=== PATIENT | female | born 1950 | race Caucasian/White ===

== ENCOUNTER 2018-01-12 07:37 | Emergency (ER) | payer MEDICARE, OTHER ==
[2018-01-12] MEDS: DEXTROSE 50% 50 ML DISP.SYRIN IVP PRN (07:45)
[2018-01-12] MEDS: DEXTROSE 5 % AND 0.9 % NACL 1,000 ML IV SCH ×2 (07:45→09:26)
[2018-01-12 08:12] LABS: BASOPHILS % 0.2 (0.0-1.5); EOSINOPHILS % 1.2 % (0.0-6.8); MEAN CORPUSCULAR HEMOGLOBIN 30.8 pg (28.0-34.0); MEAN CORPUSCULAR VOLUME 102.4 fl (80.0-100.0); MONOCYTES % 4.2 % (0.0-11.0); NEUTROPHILS # 8.5 # k/uL (1.4-7.7)
[2018-01-12] MEDS: FUROSEMIDE 20 MG/2 ML VIAL IVP ONE (08:25)
[2018-01-12 08:26] LABS: eGFR (African) > 60; eGFR (Non-African) > 60
--- NOTE | 2018-01-12 08:36 | ED Physician Documentation ---
General Adult - HISTORIAN Historian: patient, paramedics - HPI Chief Complaint: General Adult Further Comments: yes (Patient brought in via EMS from [facility] with blood sugar of 25. On arrival to ER, accu check was 29, amp of d50 given. Patient unresponsive to verbal or painful stimuli, diaphoretic, labored respirations with wet cough, RA sat 80%.) - ROS CONST: no problems (Patient unable to contribute to ROS on admission), recent illness (12/27 [facility] -L hip fracture, 12/31 to [facility] with cardiogenic shock) - PAST HX Past History: COPD Other History: diabetes Type 2, other Surgeries/Procedures: other (12/27 Left intertrochanteric femur fracture repair at [facility]) Allergies/Adverse Reactions: Allergies Allergy/AdvReac Type Severity Reaction Status Date / Time cephalexin monohydrate Allergy Unknown Verified 04/03/14 14:23 [From Keflex] rosuvastatin calcium Allergy Unknown Verified 04/03/14 14:23 [From Crestor] Home Medications: Ambulatory Orders Medication Instructions Recorded Aspirin [Marisa] 81 mg PO DAILY 04/03/14 Atorvastatin Calcium [Lipitor] 20 mg PO DAILY 04/03/14 Bupropion HCl [Bupropion HCl Sr] 150 mg PO DAILY 04/03/14 Gabapentin [Gabapentin] 100 mg PO DIRECTED 04/03/14 Insulin Detemir [Levemir Flexpen] 0 unit SQ DIRECTED 04/03/14 Insulin Lispro [Humalog] 0 unit SQ DIRECTED 04/03/14 Ipratropium/Albuterol Sulfate 3 ml NEB DIRECTED 04/03/14 [Duoneb] Levothyroxine Sodium [Synthroid] 75 mcg PO DAILY 04/03/14 Nitroglycerin 0.4 mg SL DIRECTED 04/03/14 [place]-3 Acid Ethyl Esters [Lovaza] 1 gm PO DIRECTED 04/03/14 Omeprazole 40 mg PO DAILY 04/03/14 Prasugrel HCl [Effient] 10 mg PO DAILY 04/03/14 Spironolactone 25 mg PO DIRECTED 04/03/14 Tiotropium [place] [Spiriva] 1 inh IH QD 04/03/14 Valsartan [Diovan] 40 mg PO DAILY 04/03/14 Venlafaxine HCl [Effexor] 25 mg PO DAILY 04/03/14 rOPINIRole HCL [Requip] 1 mg PO DAILY 04/03/14 Carvedilol [Coreg] 12.5 mg PO D #30 tablet 04/04/14 Furosemide 20 mg PO D #30 tablet 04/04/14 Insulin Detemir [Levemir Flextouch] 25 unit SQ HS #10 ml 04/04/14 Insulin Lispro [Humalog] 4 - 12 unit SQ QID #10 ml 04/04/14 - SOCIAL HX Smoking History: cigarettes - FAMILY HX Family History: No - VITAL SIGNS Vital Signs: Vital Signs Temp Pulse Resp BP Pulse Ox 161/81 04/04/14 10:06 - REVIEWED ASSESSMENTS Nursing Assessment Reviewed: Yes Vitals Reviewed: Yes Progress - Progress Progress: 1 amp D50 given on arrival - diaphoretic and obtunded. DNR noted. Blood sugar up to 174. Patient awake, re-oriented to place and time. Knows name. Reviewed medical records from [place] - 12/31/17 WBC 39.69, Trop .96, K 7.3, BNP 3680, ST 3389, ALT 1460 01/11/18 Lab - WBC 14.0, Na 132 0900 Patient lethargic - blood down to 74; 25mg of Dextrose give; D5NS increased to 150cc/hr; no D10 available at [facility]. 0915 Patient refusing to drink. Will need to transfer to higher level of care. No D10 or parental nutrition available. 0920 Spoke with ; updated on patient's condition, agrees with transfer. Call to [facility] - patient accepted by Dr Hampton. ED Results Lab/Radiology - Lab Results Lab Results: Lab Results 01/12/18 01/12/18 01/12/18 08:05 08:05 08:05 WBC 10.30 K/ul K/ul (4.00-12.00) RBC 4.03 M/ul M/ul (3.90-5.20) Hgb 12.4 g/dL g/dL (12.0-16.0) Hct 41.2 % % (34.5-46.5) MCV 102.4 fl H fl (80.0-100.0) MCH 30.8 pg pg (28.0-34.0) MCHC 30.1 g/dL g/dL (30.0-36.0) RDW 29.1 % H % (11.3-14.3) Plt Count 289 K/mm3 K/mm3 (130-400) Neut % (Auto) 82.2 % H % (39.0-79.0) Lymph % (Auto) 10.2 % L % (16.0-50.0) [place] % (Auto) 4.2 % % (0.0-11.0) Eos % (Auto) 1.2 % % (0.0-6.8) Baso % (Auto) 0.2 (0.0-1.5) Neut # (Auto) 8.5 # k/uL H # k/uL (1.4-7.7) Lymph # (Auto) 1.0 # k/uL # k/uL (0.6-4.0) [place] # (Auto) 0.4 # k/uL # k/uL (0.0-0.9) Eos # (Auto) 0.1 # k/uL # k/uL (0.0-0.6) Baso # (Auto) 0.0 # k/uL # k/uL (0.0-0.5) Reactive Lymphs % 2.1 % % (0.0-5.0) Reactive Lymphs # 0.2 # k/uL # k/uL (0.0-0.8) Sodium 131 mmol/L L mmol/L (136-145) Potassium 3.9 mmol/L mmol/L (3.5-5.1) Chloride 103 mmol/L mmol/L (98-107) Carbon Dioxide 23 mmol/L mmol/L (22-30) BUN 11 mg/dL mg/dL (7-17) Creatinine 0.50 mg/dL L mg/dL (0.52-1.04) Est GFR ( Amer) > 60 (60 - ) Est GFR (Non-Af Amer) > 60 (60 - ) Glucose 197 mg/dL H mg/dL (74-106) Lactate 1.5 U/L U/L (0.7-2.1) Calcium 8.2 mg/dL L mg/dL (8.4-10.2) Total Bilirubin 1.0 mg/dL mg/dL (0.2-1.3) AST 47 U/L H U/L (15-46) ALT 169 U/L H U/L (13-69) Alkaline Phosphatase 203 U/L H U/L (38-126) Creatine Kinase 155 U/L H U/L (30-135) CK-MB (CK-2) Pending Troponin I 0.20 ng/mL H ng/mL (0.03-0.06) NT-Pro-B Natriuret Pep Pending Total Protein 6.0 g/dL L g/dL (6.3-8.2) Albumin 2.8 g/dL L g/dL (3.5-5.0) - Radiology Radiology Impressions: Examination: Portable chest History: Evaluate lungs. COUGH, HYPOXIA (Hx) Comparison exam: None available. Findings: Single view of the chest demonstrates a normal cardiac and mediastinal silhouette. Vascular calcifications involving aortic arch. Lung sandoval without focal infiltrate. No blunting of the costophrenic margins. Right- sided franci cath. Osseous structures demonstrate osteopenia and articular degenerative. Right proximal humeral fixation hardware. Impression: No acute appearing pulmonary process. Electronically signed on Jan 12, 2018 8:56:46 AM CDT by: Saji Lr - Orders Orders: ED Orders Category Date Time Status Arterial Blood Gas 1T Care 01/12/18 07:49 Active Continuous EKG monitoring Q30M Care 01/12/18 07:46 Active Continuous Pulse Oximetry Q30M Care 01/12/18 07:46 Active [place] [Urinary catheterization] 1T Care 01/12/18 07:[address] IV Lock 1T Care 01/12/18 07:46 Active CHEST 1VIEW [RAD] Stat Exams 01/12/18 07:46 Ordered BLOOD CULTURE Stat Lab 01/12/18 08:05 Received BNP [NT-proBNP] Stat Lab 01/12/18 08:05 Results CBC/PLATELET/DIFF Stat Lab 01/12/18 08:05 Completed CKMB Stat Lab 01/12/18 08:05 Results CMP Stat Lab 01/12/18 08:05 Completed CREATINE KINASE Stat Lab 01/12/18 08:05 Completed LACTATE Stat Lab 01/12/18 08:05 Completed TROPONIN I (cTnI) Stat Lab 01/12/18 08:05 Results UA W/MICRO IF INDICATED Stat Lab 01/12/18 07:47 Ordered Dextrose 5 % and 0.9 % NaCl [D5ns] 1,000 ml Med 01/12/18 07:43 Discontinued IV .STK-MED Dextrose 5 % and 0.9 % NaCl [D5ns] 1,000 ml Med 01/12/18 08:00 Ordered IV Q8H Dextrose 50% [Dextrose 50%-Water Syringe] Med 01/12/18 07:43 Discontinued 50 ml IVP .STK-MED ONE Dextrose 50% [Dextrose 50%-Water Syringe] Med 01/12/18 07:47 Ordered 50 ml IVP NOW PRN Furosemide [Lasix] Med 01/12/18 08:23 Discontinued 20 mg IVP NOW ONE Furosemide [Lasix] Med 01/12/18 08:21 Discontinued 40 mg IVP NOW ONE Oxygen Daily Oxygen 01/12/18 08:00 Ordered EKG WITH COMPARISON Stat Ther 01/12/18 07:46 Ordered General Adult Physical Exam - PHYSICAL EXAM GENERAL APPEARANCE: severe distress EENT: eye inspection normal, FATEMEH RESPIRATORY: chest non-tender, rales (bilaterally; course, wet cough noted), other (RA Sat 80% - patient placed on NRBM at 100%) CVS: reg rate & rhythm, heart sounds normal, equal pulses, no murmur, no gallop , PMI nml, no JVD, no friction rub, 24 ABDOMEN: soft, no organomegaly, normal bowel sounds, no abdominal bruit, no distension SKIN: diaphoresis, pallor EXTREMITIES: other (bilateral feet in kerlix dressings, heel protectors in place bilaterally) NEURO: other (obtunded on arrival; D50 given - patient became more alert, confused and combative; 0840 now - cooperative, reoriented patient to time and place, inappropriate speach at times, BRODY x4 purposeful) Discharge Clincal Impression: Hypoglycemia, Elevated troponin, Elevated LFTs CHF (congestive heart failure) Qualifiers: Heart failure type: combined systolic and diastolic Heart failure chronicity: acute Qualified Code(s): I50.41 - Acute combined systolic (congestive) and diastolic (congestive) heart failure Altered mental status Qualifiers: Altered mental status type: disorientation Qualified Code(s): R41.0 - Disorientation, unspecified Condition: Fair Disposition: 02 XFER [facility] Decision to Admit: NO Decision Time: 09:53
[2018-01-12] MEDS: DEXTROSE 50% 50 ML DISP.SYRIN IVP ONE ×2 (08:37→09:26)
[2018-01-12] MEDS: FUROSEMIDE 40 MG/4 ML VIAL IVP ONE (08:37)
[2018-01-12] MEDS: DEXTROSE 5 % AND 0.9 % NACL 1,000 ML IV ONE (08:38)
[2018-01-12] MEDS ORDERED: DEXTROSE 50% 50 ML DISP.SYRIN IVP ONE (09:06)
[2018-01-12 10:41] VITALS: BP 138/70
--- NOTE | 2018-01-13 06:09 | Diagnostic Imaging Report ---
NOE CLEVELAND ([employer]ANDER) - ER [facility] [id number] [facility].[address] [address] Report Submission Date: Jan 12, 2018 8:56:46 AM CDT Patient Study Name: MORAIMA LOCO Date: Jan 12, 2018 8:32:16 AM CDT Modality Type: DX Gender: F Description: CHEST : 52 Institution: [facility] Physician: NOE CLEVELAND ([employer]ER) - ER Examination: Portable chest History: Evaluate lungs. COUGH, HYPOXIA (Hx) Comparison exam: None available. Findings: Single view of the chest demonstrates a normal cardiac and mediastinal silhouette. Vascular calcifications involving aortic arch. Lung sandoval without focal infiltrate. No blunting of the costophrenic margins. Right- sided franci cath. Osseous structures demonstrate osteopenia and articular degenerative. Right proximal humeral fixation hardware. Impression: No acute appearing pulmonary process. Electronically signed on Jan 12, 2018 8:56:46 AM CDT by: Saji LAM
[2018-01-17 08:14] LABS: ABG BASE EXCESS 25.7 (-2 - +2); ABG PH 7.31 (7.35-7.45)
== END 2018-01-12 10:40 | disposition short-term general hospital (02) ==
LOC: ED 07:37
DX: E16.2 Hypoglycemia, unspecified (principal); R79.89 Other specified abnormal findings of blood chemistry; I50.41 Acute combined systolic (congestive) and diastolic (congestive) heart failure; R41.0 Disorientation, unspecified
CPT/HCPCS: 36415; 51702; 71045; 80053; 82550; 82553; 83605; 83880; 84484; 85025; 87040; J1940; J7042; 36600; 82803; 96365; 96366; 96375; 96376

== ENCOUNTER 2018-02-27 07:18 | Inpatient (IN) | payer OTHER ==
--- NOTE | 2018-02-27 07:42 | ED Physician Documentation ---
General Adult - HISTORIAN Historian: patient - HPI Stated Complaint: Low SpO2 Chief Complaint: General Adult Onset: hours Timing: still present Severity: moderate Further Comments: yes (Pt is a 67 yo female care home resident who had some low SpO2 readings on monitor at care home and was thought to have a change in MS. Pt c/o sob on presentation. No chest pain. No n/v or other complaints. Pt had cool extremities on presentation, and initial SpO2 readings at [facility] may not have been valid.) - ROS CONST: no problems EYES/ENT: none CVS/RESP: shortness of breath GI/: none MS/SKIN/LYMPH: none - PAST HX Past History: other (Breast cancer, CAD, HTN, mitral valve prolapse, diabetes Type I, peripheral neuropathy, cirrhosis, OA, Hypothyroidism.) Surgeries/Procedures: other (Appendectomy, Cholecystectomy, Catarac OU, Hysterectomy, CAD with 6 stents placed; R inguinal hernia) Allergies/Adverse Reactions: Allergies Allergy/AdvReac Type Severity Reaction Status Date / Time cephalexin monohydrate Allergy Unknown Verified 02/27/18 09:42 [From Keflex] rosuvastatin calcium Allergy Unknown Verified 02/27/18 09:42 [From Crestor] codeine Allergy Verified 02/27/18 09:42 Home Medications: Ambulatory Orders Medication Instructions Recorded Aspirin [Aspir-Low] 81 mg PO D 02/27/18 Atorvastatin Calcium 40 mg PO D 02/27/18 Clopidogrel Bisulfate [Plavix] 75 mg PO D 02/27/18 Cyanocobalamin [Vitamin B-12] 1,000 mcg PO D 02/27/18 Furosemide [Lasix] 20 mg PO D 02/27/18 Gabapentin 300 mg PO TID 02/27/18 Insulin Glargine,Hum.rec.anlog 12 unit SQ HS 02/27/18 [Lantus] Insulin Lispro 3Ml [Humalog] 4 unit SQ TID 02/27/18 Levothyroxine Sodium 75 mcg PO D 02/27/18 Lisinopril 5 mg PO D 02/27/18 Metoprolol Succinate 50 mg PO D 02/27/18 Pantoprazole Sodium 40 mg PO D 02/27/18 Polyethylene Glycol 3350 [Miralax] 17 gm PO D 02/27/18 Ropinirole HCl 0.5 mg PO HS 02/27/18 Sennosides/Docusate Sodium 1 tab PO BID 02/27/18 [Senna-Docusate Sodium Tablet] Sitagliptin Phosphate [Januvia] 100 mg PO AM 02/27/18 Spironolactone 25 mg PO D 02/27/18 Tiotropium [place] [Spiriva] 18 mcg IH D 02/27/18 Venlafaxine HCl [Effexor Xr] 75 mg PO D 02/27/18 Venlafaxine HCl [Effexor Xr] 150 mg PO D 02/27/18 - SOCIAL HX Smoking History: cigarettes (>50 py smoking hx) - FAMILY HX Family History: Yes (Father age 60, bowel obstruction; Mother age 84, advanced age; ) - VITAL SIGNS Vital Signs: Vital Signs Temp Pulse Resp BP Pulse Ox 138/70 01/12/18 10:40 - REVIEWED ASSESSMENTS Nursing Assessment Reviewed: Yes Vitals Reviewed: Yes Progress - Progress Progress: CXR: There are postoperative changes of right proximal humeral fixation. There is a right chest Port-A-Cath. There is a right basilar infiltrate medially. There is mild central pulmonary vascular congestion. No pneumothorax. The heart is borderline enlarged. IMPRESSION: 1. Right medial base mild infiltrate may be due to pneumonia or scarring. Old films would be helpful in making this distinction. 2. Mild central pulmonary vascular congestion suggestive of mild CHF. NS 500 cc IVF Admit to Dr. Gaston. General Adult Physical Exam - PHYSICAL EXAM GENERAL APPEARANCE: mild distress EENT: pharynx normal NECK: normal inspection, supple RESPIRATORY: rales CVS: reg rate & rhythm, heart sounds normal ABDOMEN: soft, no organomegaly, normal bowel sounds RECTAL: other (skin breakdown, coccyc, early decub) BACK: normal inspection, no CVA tenderness SKIN: other (skin breakdown, coccyc, early decub; cool extremities) EXTREMITIES: non-tender, normal range of motion, no evidence of injury, other (cool extremities, delayed cap refill) NEURO: oriented X3 (baseline), motor nml, sensation nml Discharge Clincal Impression: Diabetes mellitus type 1, Hyperglycemia, Hyponatremia, Hyperkalemia, possible pneumonia CHF (congestive heart failure) Qualifiers: Heart failure type: unspecified Heart failure chronicity: unspecified Qualified Code(s): I50.9 - Heart failure, unspecified Referrals: Yakov Gaston MD [Primary Care Provider] - Condition: Stable Decision to Admit: NO Decision Time: 10:39
[2018-02-27] MEDS ORDERED: 0.9 % SODIUM CHLORIDE 500 ML IV ONE (08:04)
[2018-02-27 08:55] LABS: eGFR (Non-African) > 60
[2018-02-27 08:57] LABS: MEAN CORPUSCULAR HEMOGLOBIN 30.7 pg (28.0-34.0); MEAN CORPUSCULAR VOLUME 100.7 fl (80.0-100.0)
[2018-02-27 10:01] LABS: EOSINOPHILS % 1 % (0-7); MONOCYTES % 5 % (0-11); SEGMENTED NEUTROPHILS % 78 % (39-79)
[2018-02-27 10:02] LABS: ANISOCYTOSIS 2+ (NEGATIVE)
[2018-02-27] MEDS ORDERED: INSULIN REGULAR, HUMAN 100 UNIT/ML 3ML VIAL IV ONE (11:09)
[2018-02-27 12:39] VITALS: BMI 18.6
[2018-02-27] MEDS ORDERED: LEVOFLOXACIN 500MG/D5W 100ML 100 ML IV ONE ×2 (13:11→23:49)
[2018-02-27] MEDS: 0.9 % SODIUM CHLORIDE 1,000 ML IV SCH (13:24)
[2018-02-27] MEDS: LEVOFLOXACIN 500MG/D5W 100ML 500 MG in PREMIX BAG 1 BAG IV SCH (13:24)
[2018-02-27] MEDS: GABAPENTIN 300 MG CAPSULE PO SCH ×2 (13:36→17:42)
[2018-02-27] MEDS: INSULIN LISPRO 100 UNIT/ML 3ML VIAL SQ SCH ×2 (13:45→17:17)
[2018-02-27] MEDS ORDERED: FUROSEMIDE 20 MG/2 ML VIAL ONE ×3 (16:32→23:49)
[2018-02-27] MEDS: ENOXAPARIN SODIUM 30 MG/0.3 ML DISP.SYRIN SQ SCH (16:37)
[2018-02-27] MEDS: INSULIN REGULAR, HUMAN 100 UNIT/ML 3ML VIAL SQ SCH (16:48)
[2018-02-27] MEDS: IPRATROPIUM/ALBUTEROL SULFATE 3 ML AMPUL.NEB NEB SCH (17:42)
--- NOTE | 2018-02-27 18:30 | Diagnostic Imaging Report ---
[facility] [address] [facility].[address] [address] Report Submission Date: Feb 27, 2018 10:11:24 AM CDT Patient Study Name: MORAIMA LOCO Date: Feb 27, 2018 9:28:14 AM CDT Modality Type: DX Gender: F Description: CHEST : 52 Institution: [facility] Physician: JUWAN GUTIERREZ HISTORY: 67-year-old female with fatigue and shortness of breath. COMPARISON: None available. TECHNIQUE: Single portable AP view of the chest was performed. FINDINGS: There are postoperative changes of right proximal humeral fixation. There is a right chest Port-A-Cath. There is a right basilar infiltrate medially. There is mild central pulmonary vascular congestion. No pneumothorax. The heart is borderline enlarged. IMPRESSION: 1. Right medial base mild infiltrate may be due to pneumonia or scarring. Old films would be helpful in making this distinction. 2. Mild central pulmonary vascular congestion suggestive of mild CHF. Electronically signed on Feb 27, 2018 10:11:24 AM CDT by: Derrick LAM
[2018-02-27] MEDS ORDERED: FUROSEMIDE 20 MG TABLET PO ONE (20:51)
[2018-02-27] MEDS: rOPINIRole HCL 1 MG TABLET PO SCH (21:00)
[2018-02-27] MEDS: ATORVASTATIN CALCIUM 80 MG TABLET PO SCH (21:00)
[2018-02-27] MEDS ORDERED: SENNOSIDES/DOCUSATE SODIUM 1 EACH TABLET PO SCH (21:00)
[2018-02-27] MEDS: FUROSEMIDE 40 MG/4 ML VIAL IVP SCH (21:00)
[2018-02-27] MEDS ORDERED: LEVOTHYROXINE SODIUM 25 MCG TABLET ONE (23:48)
[2018-02-27] MEDS ORDERED: METOPROLOL TARTRATE 50 MG TABLET ONE (23:53)
[2018-02-28] MEDS: 0.9 % SODIUM CHLORIDE 1,000 ML IV SCH ×4 (00:58→21:09)
[2018-02-28] MEDS: IPRATROPIUM/ALBUTEROL SULFATE 3 ML AMPUL.NEB NEB SCH ×4 (00:59→18:39)
[2018-02-28] MEDS ORDERED: LEVOTHYROXINE SODIUM 100 MCG TABLET PO SCH (07:00)
[2018-02-28 07:10] LABS: BASOPHILS % 0.1 (0.0-1.5); EOSINOPHILS % 0.2 % (0.0-6.8); MEAN CORPUSCULAR HEMOGLOBIN 30.4 pg (28.0-34.0); MEAN CORPUSCULAR VOLUME 94.5 fl (80.0-100.0); MONOCYTES % 3.1 % (0.0-11.0); NEUTROPHILS # 7.1 # k/uL (1.4-7.7)
[2018-02-28] MEDS: INSULIN REGULAR, HUMAN 100 UNIT/ML 3ML VIAL SQ SCH ×3 (07:16→18:30)
[2018-02-28 07:44] LABS: eGFR (Non-African) > 60
[2018-02-28] MEDS: VENLAFAXINE HCL 37.5 MG CAP.ER.24H PO SCH (08:41)
[2018-02-28] MEDS: ASPIRIN EC 81 MG TABLET.DR PO SCH (08:41)
[2018-02-28] MEDS: POLYETHYLENE GLYCOL 3350 17 GM POWD.PACK PO SCH (08:42)
[2018-02-28] MEDS: SITAGLIPTIN PHOSPHATE 50 MG TABLET PO SCH (08:42)
[2018-02-28] MEDS: GABAPENTIN 300 MG CAPSULE PO SCH ×3 (08:43→18:14)
[2018-02-28] MEDS: CLOPIDOGREL BISULFATE 75 MG TABLET PO SCH (08:43)
[2018-02-28] MEDS: PANTOPRAZOLE SODIUM 40 MG TABLET PO SCH (08:43)
[2018-02-28] MEDS: CYANOCOBALAMIN (VITAMIN B12) 1,000 MCG TABLET PO SCH (08:43)
[2018-02-28] MEDS: METOPROLOL SUCCINATE 50 MG TAB.ER.24H PO SCH (08:44)
[2018-02-28] MEDS: INSULIN LISPRO 100 UNIT/ML 3ML VIAL SQ SCH ×3 (08:45→18:17)
[2018-02-28] MEDS ORDERED: LEVOFLOXACIN 500MG/D5W 100ML 100 ML IV ONE (08:53)
[2018-02-28] MEDS: LEVOFLOXACIN 500MG/D5W 100ML 500 MG in PREMIX BAG 1 BAG IV SCH (08:54)
[2018-02-28] MEDS ORDERED: TIOTROPIUM BROMIDE INHALER IH SCH (09:00)
[2018-02-28] MEDS ORDERED: SPIRONOLACTONE 25 MG TABLET PO SCH (09:00)
[2018-02-28] MEDS ORDERED: LISINOPRIL 5 MG TABLET PO SCH (09:00)
[2018-02-28] MEDS: FUROSEMIDE 40 MG/4 ML VIAL IVP SCH ×2 (09:12→20:14)
[2018-02-28] MEDS ORDERED: SENNOSIDES/DOCUSATE SODIUM 1 EACH TABLET PO ONE (10:58)
[2018-02-28 16:32] LABS: MEAN CORPUSCULAR VOLUME 93.3 fl (80.0-100.0)
[2018-02-28] MEDS: ENOXAPARIN SODIUM 30 MG/0.3 ML DISP.SYRIN SQ SCH (18:15)
[2018-02-28] MEDS: SENNOSIDES/DOCUSATE SODIUM 1 EACH TABLET PO SCH (20:11)
[2018-02-28] MEDS: rOPINIRole HCL 1 MG TABLET PO SCH (20:11)
[2018-02-28] MEDS: ATORVASTATIN CALCIUM 80 MG TABLET PO SCH (20:12)
--- NOTE | 2018-02-28 21:47 | History and Physical Report ---
History of Present Illnes - History of Present Illness Reason for Visit: mental confusion History of Present Illness: Patient is a 67-year-old white female from [facility]. Patient has a history of dementia along with diabetes coronary artery disease, congestive heart failure, patient was noted to be hypoxic at the long-term with an SaO2 of 74%. Patient appeared to be having some increase mental confusion. Patient has had a cough that is been productive sounding for several days. Patient is not had any fever or chills. Patient oral intake has been diminished. Patient was subsequently brought to the emergency room for evaluation. In the emergency room patient was found to be hyponatremia with a sodium of 122 and hyerkalemic with her potassium of 5.4. Patient was noted to be hyperglycemic for the blood sugar in the 300s. Patient has a history of congestive heart failure. Is not known what her baseline BNP is. Patient BNP in the emergency room was elevated. Chest x-ray showed a possible early infiltrate. Patient was subsequently admitted to the hospital for further care and evaluation. Patient did appear to be confused to the family members more than her baseline. - Past Medical History Cardiac: CAD, HTN, Other (mitral valve prolapse) [employer]: Peripheral neuropathy (diabetic), Other Hepatobiliary: Cirrhosis (history of elevated liver function test) Musculoskeletal: Osteoarthritis Endocrine: Diabetes (type 1 by history), Hypothyroidism - Past Surgical History Past Surgical History: Appendectomy, Cholecystectomy, Hysterectomy, Mastectomy (right), Other (rt humeral fracture, s/p ORIF Rt hip fx, Rt port-a-cath) - Past Family History Mother Family History: (84yo of advanced age) Father Family History: (60yo, bowel abstruction) Brother 1 Family History: CAD Sister 1 Family History: (suicide) Sister 2 Family History: None (health) - Past Social History Smoke: # pack years (78), <1 pack per day (1/4ppd) Alcohol: None Drugs: None Lives: With Family ( is away most of the time) Domestic Violence: Negative - Health Maintenance Health Maintenance: Cholesterol, Influenza Vaccine (2013), Pneumococcal Vaccine (within the last 5 years). denies: Tetanus Influenza Vaccine: Current for this Influenza Season Pneumonia Vaccine: Yes Resuscitation Status: Resusciation Status Resuscitation Status Do Not Resuscitate - Unable to Obtain History Unable to Obtain: Yes Review of Systems - Review of Systems Constitutional: negative: Fever, Chills Eyes: negative: pain, eyelid inflammation ENT: Nose Congestion. negative: Ear Pain, Ear Discharge, Nose Pain, Nose Discharge, Mouth Pain, Mouth Swelling, Throat Pain, Throat Swelling Respiratory: Cough, Shortness of Breath, SOB with Excertion, Sputum (unknown color). negative: Hemoptysis, Pleuritic Pain, Wheezing Cardiovascular: Palpitations. negative: Chest Pain, Edema, Light Headedness Gastrointestinal: negative: Nausea, Vomiting, Abdominal Pain, Diarrhea, Constipation, Melena, Hematochezia Genitourinary: Incontinence. negative: Dysuria, Frequency, Hematuria Musculoskeletal: Shoulder Pain, Back Pain Skin: negative: Rash Neurological: Weakness, Confusion. negative: Numbness, Incoordination, Change in Speech, Seizures - Medications/Allergies Allergies/Adverse Reactions: Allergies Allergy/AdvReac Type Severity Reaction Status Date / Time cephalexin monohydrate Allergy Unknown Verified 03/04/18 23:59 [From Keflex] rosuvastatin calcium Allergy Unknown Verified 03/04/18 23:59 [From Crestor] codeine Allergy Verified 03/04/18 23:59 Home Medications: Home Medications Aspirin [Aspir-Low] 81 mg PO D 02/27/18 Atorvastatin Calcium 40 mg PO D 02/27/18 Clopidogrel Bisulfate [Plavix] 75 mg PO D 02/27/18 Cyanocobalamin [Vitamin B-12] 1,000 mcg PO D 02/27/18 Furosemide [Lasix] 20 mg PO D 02/27/18 Gabapentin 300 mg PO TID 02/27/18 Insulin Glargine,Hum.rec.anlog [Lantus] 12 unit SQ HS 02/27/18 Insulin Lispro 3Ml [Humalog] 4 unit SQ TID 02/27/18 Levothyroxine Sodium 75 mcg PO D 02/27/18 Lisinopril 5 mg PO D 02/27/18 Metoprolol Succinate 50 mg PO D 02/27/18 Pantoprazole Sodium 40 mg PO D 02/27/18 Polyethylene Glycol 3350 [Miralax] 17 gm PO D 02/27/18 Ropinirole HCl 0.5 mg PO HS 02/27/18 Sennosides/Docusate Sodium [Senna-Docusate Sodium Tablet] 1 tab PO BID 02/27/18 Sitagliptin Phosphate [Januvia] 100 mg PO AM 02/27/18 Tiotropium [place] [Spiriva] 18 mcg IH D 02/27/18 Venlafaxine HCl [Effexor Xr] 75 mg PO D 02/27/18 Venlafaxine HCl [Effexor Xr] 150 mg PO D 02/27/18 Current Inpatient Medications: Current Inpatient Medications Albuterol/Ipratropium (Duoneb) 3 ml NEB Q6 [facility] Last Admin: 02/28/18 18:39 Dose: 3 ml Aspirin (Ecotrin) 81 mg PO D [facility] Last Admin: 02/28/18 08:41 Dose: 81 mg Atorvastatin Calcium (Lipitor) 40 mg PO HS [facility] Last Admin: 02/28/18 20:12 Dose: 40 mg Clopidogrel Bisulfate (Plavix) 75 mg PO D [facility] Last Admin: 02/28/18 08:43 Dose: 75 mg Cyanocobalamin (Vitamin B-12) 1,000 mcg PO D [facility] Last Admin: 02/28/18 08:43 Dose: 1,000 mcg Enoxaparin Sodium (Lovenox) 30 mg SQ QD [facility] Stop: 03/12/18 16:01 Last Admin: 02/28/18 18:15 Dose: 30 mg Furosemide (Lasix) 20 mg IVP Q12 [facility] Last Admin: 02/28/18 20:14 Dose: 20 mg Gabapentin (Neurontin) 300 mg PO TID [facility] Last Admin: 02/28/18 18:14 Dose: 300 mg LEVOFLOXACIN 500MG/D5W 100ML (500 mg/ PREMIX BAG) 100 mls @ 100 mls/hr IV DAILY [facility] Last Admin: 02/28/18 08:54 Dose: 100 mls/hr Sodium Chloride (Normal Saline) 1,000 mls @ 100 mls/hr IV Q10H [facility] Last Admin: 02/28/18 21:09 Dose: 100 mls/hr Insulin Human Lispro (Humalog) 4 unit SQ TID [facility] Last Admin: 02/28/18 18:17 Dose: 4 units Insulin Human Regular (Humulin R) 0 - 12 unit SQ CHEMX3 [facility]; Protocol Last Admin: 02/28/18 18:30 Dose: Not Given Levothyroxine Sodium (Synthroid) 75 mcg PO 0700 [facility] Metoprolol Succinate (Toprol Xl) 50 mg PO D [facility] Last Admin: 02/28/18 08:44 Dose: 50 mg Miscellaneous (Chem Sticks) 1 each MC CHEMQID [facility] Last Admin: 02/28/18 20:21 Dose: 1 each Pantoprazole Sodium (Protonix) 40 mg PO D [facility] Last Admin: 02/28/18 08:43 Dose: 40 mg Polyethylene Glycol (Miralax) 17 gm PO D [facility] Last Admin: 02/28/18 08:42 Dose: 17 gm Ropinirole HCl (Requip) 0.5 mg PO HS [facility] Last Admin: 02/28/18 20:11 Dose: 0.5 mg Senna/Docusate Sodium (Senna Plus Tablet) 1 each PO BID [facility] Last Admin: 02/28/18 20:11 Dose: 1 each Sitagliptin Phosphate (Januvia) 100 mg PO DAILY [facility] Last Admin: 02/28/18 08:42 Dose: 100 mg Tiotropium Evergreen (Spiriva) 1 inh IH D [facility] Venlafaxine HCl (Effexor Xr) 225 mg PO DAILY [facility] Last Admin: 02/28/18 08:41 Dose: 225 mg Exam - Exam Vital Signs: Vital Signs (72 hours) 02/27/18 02/27/18 02/27/18 07:19 07:52 08:22 Temperature 97.7 F Pulse Rate 88 88 Pulse Rate [ Left Pulse ox] Pulse Rate [ Left] Pulse Rate [ 80 Right Pulse ox] Respiratory 14 Rate Blood Pressure 169/94 [Left Arm] Blood Pressure [Right Arm] O2 Sat by Pulse 86 L 86 L 83 L Oximetry 02/27/18 02/27/18 02/27/18 09:00 09:30 10:30 Temperature Pulse Rate 87 85 79 Pulse Rate [ Left Pulse ox] Pulse Rate [ Left] Pulse Rate [ Right Pulse ox] Respiratory Rate Blood Pressure [Left Arm] Blood Pressure [Right Arm] O2 Sat by Pulse 84 L 85 L 92 Oximetry 02/27/18 02/27/18 02/27/18 11:30 11:33 12:31 Temperature Pulse Rate Pulse Rate [ Left Pulse ox] Pulse Rate [ Left] Pulse Rate [ 81 Right Pulse ox] Respiratory 20 Rate Blood Pressure 173/106 [Left Arm] Blood Pressure [Right Arm] O2 Sat by Pulse 100 90 L 100 Oximetry 02/27/18 02/27/18 02/27/18 12:39 13:00 13:30 Temperature 97.3 F L Pulse Rate 77 79 Pulse Rate [ Left Pulse ox] Pulse Rate [ Left] Pulse Rate [ 79 Right Pulse ox] Respiratory 20 Rate Blood Pressure [Left Arm] Blood Pressure 167/90 [Right Arm] O2 Sat by Pulse 100 100 99 Oximetry 02/27/18 02/27/18 02/27/18 13:51 14:04 15:00 Temperature Pulse Rate 79 79 77 Pulse Rate [ Left Pulse ox] Pulse Rate [ Left] Pulse Rate [ Right Pulse ox] Respiratory Rate Blood Pressure [Left Arm] Blood Pressure [Right Arm] O2 Sat by Pulse 98 100 100 Oximetry 02/27/18 02/27/18 02/27/18 15:22 15:30 15:42 Temperature 96.4 F L Pulse Rate 81 81 Pulse Rate [ 82 Left Pulse ox] Pulse Rate [ Left] Pulse Rate [ Right Pulse ox] Respiratory 18 Rate Blood Pressure 166/94 [Left Arm] Blood Pressure [Right Arm] O2 Sat by Pulse 100 100 100 Oximetry 02/27/18 02/27/18 02/27/18 16:30 16:52 17:15 Temperature Pulse Rate 82 82 77 Pulse Rate [ Left Pulse ox] Pulse Rate [ Left] Pulse Rate [ Right Pulse ox] Respiratory Rate Blood Pressure [Left Arm] Blood Pressure [Right Arm] O2 Sat by Pulse 98 98 98 Oximetry 02/27/18 02/27/18 02/27/18 17:44 18:01 19:30 Temperature Pulse Rate 77 85 85 Pulse Rate [ Left Pulse ox] Pulse Rate [ Left] Pulse Rate [ Right Pulse ox] Respiratory Rate Blood Pressure [Left Arm] Blood Pressure [Right Arm] O2 Sat by Pulse 98 100 100 Oximetry 02/27/18 02/27/18 02/27/18 20:00 20:30 21:00 Temperature Pulse Rate 90 90 90 Pulse Rate [ 82 Left Pulse ox] Pulse Rate [ Left] Pulse Rate [ 79 Right Pulse ox] Respiratory 18 Rate Blood Pressure [Left Arm] Blood Pressure [Right Arm] O2 Sat by Pulse 99 99 99 Oximetry 02/27/18 02/28/18 02/28/18 22:35 00:00 02:23 Temperature 97.6 F 98.1 F Pulse Rate Pulse Rate [ 82 82 94 H Left Pulse ox] Pulse Rate [ Left] Pulse Rate [ Right Pulse ox] Respiratory 22 22 22 Rate Blood Pressure 154/84 140/76 [Left Arm] Blood Pressure [Right Arm] O2 Sat by Pulse 99 97 Oximetry 02/28/18 02/28/18 02/28/18 04:00 06:39 07:00 Temperature 97.8 F Pulse Rate 100 H Pulse Rate [ 94 H 95 H Left Pulse ox] Pulse Rate [ Left] Pulse Rate [ Right Pulse ox] Respiratory 22 22 Rate Blood Pressure 158/89 [Left Arm] Blood Pressure [Right Arm] O2 Sat by Pulse 97 96 Oximetry 02/28/18 02/28/18 02/28/18 08:00 08:28 08:29 Temperature Pulse Rate 92 H 91 H Pulse Rate [ 87 Left Pulse ox] Pulse Rate [ Left] Pulse Rate [ Right Pulse ox] Respiratory 20 Rate Blood Pressure [Left Arm] Blood Pressure [Right Arm] O2 Sat by Pulse 97 97 Oximetry 02/28/18 02/28/18 02/28/18 10:11 10:12 10:15 Temperature 97.0 F L Pulse Rate 87 Pulse Rate [ Left Pulse ox] Pulse Rate [ 87 Left] Pulse Rate [ Right Pulse ox] Respiratory 20 Rate Blood Pressure 147/87 [Left Arm] Blood Pressure [Right Arm] O2 Sat by Pulse 97 96 Oximetry 02/28/18 02/28/18 02/28/18 11:10 12:00 14:00 Temperature Pulse Rate 81 80 Pulse Rate [ 87 Left Pulse ox] Pulse Rate [ 87 Left] Pulse Rate [ Right Pulse ox] Respiratory 20 Rate Blood Pressure [Left Arm] Blood Pressure [Right Arm] O2 Sat by Pulse 97 98 Oximetry 02/28/18 02/28/18 02/28/18 14:21 15:46 18:00 Temperature 97.0 F L Pulse Rate 78 77 Pulse Rate [ 87 Left Pulse ox] Pulse Rate [ 78 78 Left] Pulse Rate [ Right Pulse ox] Respiratory 18 18 Rate Blood Pressure 152/90 [Left Arm] Blood Pressure [Right Arm] O2 Sat by Pulse 98 97 99 Oximetry 02/28/18 02/28/18 19:00 20:00 Temperature 97.0 F L Pulse Rate 79 Pulse Rate [ 98 H Left Pulse ox] Pulse Rate [ Left] Pulse Rate [ Right Pulse ox] Respiratory 22 Rate Blood Pressure 132/75 [Left Arm] Blood Pressure [Right Arm] O2 Sat by Pulse 2 L 98 Oximetry General: Alert, Oriented to Person, Cooperative, Mild distress. No: Oriented to Place, Oriented to Time HEENT: Atraumatic, PERRLA, Mouth Mucous membr. moist/[place], Nose Mucous membr. moist/[place], Dentition Normal, Edentulous. No: Pharyngeal Erythema, Tonsillar Exudate, Other Neck: Normal Range of Motion. No: Rigidity, Lymphadenopathy Carotids: WNL Thyroid: WnL Lungs: Normal air movement, Speaks full Sentences, Respiratory Distress (mild), Wheezes (few faint on the left posterior), Rales Cardiovascular: Regular rate, Normal S1, Normal S2, No murmurs Abdomen: Normal bowel sounds, Soft, No tenderness, No hepatospenomegaly, No masses. No: Distended Integumentary: Normal, [place], Warm, Dry, Other (Rt breast absent, Lt breast normal, dry grangrenous changes of her toes, L>R) Extremities: No clubbing, No cyanosis, No edema, Normal pulses Neurological: Normal speech, Strength Equal Bilat, Normal tone, Sensation intact, Cranial nerves 3-12 NL, Reflexes 2+ Psych/Mental Status: Mood NL, Appropriate Affect. No: Mental status NL, Intact Judgment - Laboratory Results Laboratory Results: Laboratory Results 02/27/18 02/27/18 02/27/18 08:23 08:23 08:23 WBC 4.86 RBC 5.14 Hgb 15.8 Hct 51.7 H MCV 100.7 H MCH 30.7 MCHC 30.5 RDW 19.0 H Plt Count 204 Neut % (Auto) Lymph % (Auto) [place] % (Auto) Eos % (Auto) Baso % (Auto) Neut # (Auto) Lymph # (Auto) [place] # (Auto) Eos # (Auto) Baso # (Auto) Seg Neutrophils % 78 Band Neutrophils % 1 Lymphocytes % 15 L Reactive Lymphs % Monocytes % 5 Eosinophils % 1 Reactive Lymphs # Polychromasia 1+ H Anisocytosis 2+ H Macrocytosis 2+ H Sodium 122 L Potassium 5.4 H Chloride 83 L Carbon Dioxide 24 BUN 10 Creatinine 0.50 L Estimated Creat Clear Est GFR ( Amer) > 60 Est GFR (Non-Af Amer) > 60 Glucose 393 H Calcium 8.7 Total Bilirubin 1.0 AST 45 ALT 43 Alkaline Phosphatase 288 H Creatine Kinase 72 CK-MB (CK-2) 4.9 Troponin I 0.03 NT-Pro-B Natriuret Pep > 06520.0 H Total Protein 8.0 Albumin 4.1 Vitamin B12 Folate 02/28/18 02/28/18 02/28/18 05:30 05:30 05:30 WBC 8.40 RBC 4.42 Hgb 13.4 Hct 41.7 MCV 94.5 MCH 30.4 MCHC 32.1 RDW 19.6 H Plt Count 198 Neut % (Auto) 84.5 H Lymph % (Auto) 11.1 L [place] % (Auto) 3.1 Eos % (Auto) 0.2 Baso % (Auto) 0.1 Neut # (Auto) 7.1 Lymph # (Auto) 0.9 [place] # (Auto) 0.3 Eos # (Auto) 0.0 Baso # (Auto) 0.0 Seg Neutrophils % Band Neutrophils % Lymphocytes % Reactive Lymphs % 1.0 Monocytes % Eosinophils % Reactive Lymphs # 0.1 Polychromasia Anisocytosis Macrocytosis Sodium 121 L Potassium 4.6 Chloride 87 L Carbon Dioxide 27 BUN 9 Creatinine 0.40 L Estimated Creat Clear 138 Est GFR ( Amer) > 60 Est GFR (Non-Af Amer) > 60 Glucose 223 H Calcium 7.7 L Total Bilirubin 1.0 AST 31 ALT 36 Alkaline Phosphatase 210 H Creatine Kinase CK-MB (CK-2) Troponin I NT-Pro-B Natriuret Pep Total Protein 5.8 L Albumin 2.7 L Vitamin B12 1259 H Folate 9.1 02/28/18 15:37 WBC 7.60 RBC 4.24 Hgb 12.7 Hct 39.6 MCV 93.3 MCH 30.0 MCHC 32.1 RDW 19.7 H Plt Count 192 Neut % (Auto) Lymph % (Auto) [place] % (Auto) Eos % (Auto) Baso % (Auto) Neut # (Auto) Lymph # (Auto) [place] # (Auto) Eos # (Auto) Baso # (Auto) Seg Neutrophils % Band Neutrophils % Lymphocytes % Reactive Lymphs % Monocytes % Eosinophils % Reactive Lymphs # Polychromasia Anisocytosis Macrocytosis Sodium Potassium Chloride Carbon Dioxide BUN Creatinine Estimated Creat Clear Est GFR ( Amer) Est GFR (Non-Af Amer) Glucose Calcium Total Bilirubin AST ALT Alkaline Phosphatase Creatine Kinase CK-MB (CK-2) Troponin I NT-Pro-B Natriuret Pep Total Protein Albumin Vitamin B12 Folate Assessment/Plan - Assessment/Plan (1) CHF (congestive heart failure) Status: Acute Qualifiers: Heart failure type: unspecified Heart failure chronicity: unspecified Qualified Code(s): I50.9 - Heart failure, unspecified (2) Hyponatremia Status: Acute (3) Diabetes type 2 with atherosclerosis of arteries of extremities Status: Acute (4) Hyperkalemia Status: Acute (5) Altered mental status Status: Acute Qualifiers: Altered mental status type: disorientation Qualified Code(s): R41.0 - Disorientation, unspecified (6) Essential hypertension Status: Acute VTE Assessment - RISK FACTOR SCORE VTE RISK FACTOR SCORES: AGE OVER 60 YEARS, ACUTE INFECTION OTHER THEN SEPSIS - RISK VTE MODERATE RISK: SCORE OF 2 (RISK PROXIMAL DVT 2-4%) PROPHYAXIS NEEDED
--- NOTE | 2018-02-28 22:03 | Inpatient Progress Note ---
Subjective - Required Recertification Statement I anticipate X number of days because-include discharge plan: 2 days - Review of Systems Events since last encounter: Patient continues to be confused. Patient oral intake has been poor. Patient sodium level has not improved despite therapy. Patient potassium level is back down to within normal range. Blood sugars have been down into the 100 to 200 range. Patient denies any pain at this time. Patient denies any increasing shortness of breath dyspnea. Objective - Exam Vitals and I&O: Vital Signs Temp 97.0 F L 02/28/18 19:00 Pulse 77 02/28/18 21:46 Resp 22 02/28/18 19:00 BP 132/75 02/28/18 19:00 Pulse Ox 98 02/28/18 21:47 Intake & Output 02/27/18 02/28/18 02/28/18 23:59 11:59 23:59 Intake Total 1500 4220 2440 Balance 1500 4220 2440 Weight 53.977 kg 65.771 kg Intake: IV 1500 3800 800 Right Forearm 1500 3800 800 Oral 0 420 1640 Other: Voiding Method Diaper Diaper Diaper # Voids 0 3 2 # Bowel Movements 0 General: Alert, Oriented to Person, Cooperative. No: Oriented to Place, Oriented to Time Lungs: Normal air movement, Speaks full Sentences, Rhonchi (few right posterior) Cardiovascular: Regular rate, Normal S1, Normal S2, No murmurs Abdomen: Normal bowel sounds, Soft, No tenderness Skin: Normal, [place], Warm, Dry Neurological: Normal speech, Strength Equal Bilat Psych/Mental Status: No: Mental status NL, Mood NL, Intact Judgment - Results Results: Laboratory Results WBC 7.60 K/ul (4.00-12.00) 02/28/18 15:37 RBC 4.24 M/ul (3.90-5.20) 02/28/18 15:37 Hgb 12.7 g/dL (12.0-16.0) 02/28/18 15:37 Hct 39.6 % (34.5-46.5) 02/28/18 15:37 MCV 93.3 fl (80.0-100.0) 02/28/18 15:37 MCH 30.0 pg (28.0-34.0) 02/28/18 15:37 MCHC 32.1 g/dL (30.0-36.0) 02/28/18 15:37 RDW 19.7 % (11.3-14.3) H 02/28/18 15:37 Plt Count 192 K/mm3 (130-400) 02/28/18 15:37 Neut % (Auto) 84.5 % (39.0-79.0) H 02/28/18 05:30 Lymph % (Auto) 11.1 % (16.0-50.0) L 02/28/18 05:30 [place] % (Auto) 3.1 % (0.0-11.0) 02/28/18 05:30 Eos % (Auto) 0.2 % (0.0-6.8) 02/28/18 05:30 Baso % (Auto) 0.1 (0.0-1.5) 02/28/18 05:30 Neut # (Auto) 7.1 # k/uL (1.4-7.7) 02/28/18 05:30 Lymph # (Auto) 0.9 # k/uL (0.6-4.0) 02/28/18 05:30 [place] # (Auto) 0.3 # k/uL (0.0-0.9) 02/28/18 05:30 Eos # (Auto) 0.0 # k/uL (0.0-0.6) 02/28/18 05:30 Baso # (Auto) 0.0 # k/uL (0.0-0.5) 02/28/18 05:30 Seg Neutrophils % 78 % (39-79) 02/27/18 08:23 Band Neutrophils % 1 % (0-12) 02/27/18 08:23 Lymphocytes % 15 % (16-50) L 02/27/18 08:23 Reactive Lymphs % 1.0 % (0.0-5.0) 02/28/18 05:30 Monocytes % 5 % (0-11) 02/27/18 08:23 Eosinophils % 1 % (0-7) 02/27/18 08:23 Reactive Lymphs # 0.1 # k/uL (0.0-0.8) 02/28/18 05:30 Polychromasia 1+ (NEGATIVE) H 02/27/18 08:23 Anisocytosis 2+ (NEGATIVE) H 02/27/18 08:23 Macrocytosis 2+ (NEGATIVE) H 02/27/18 08:23 Sodium 121 mmol/L (136-145) L 02/28/18 05:30 Potassium 4.6 mmol/L (3.5-5.1) 02/28/18 05:30 Chloride 87 mmol/L (98-107) L 02/28/18 05:30 Carbon Dioxide 27 mmol/L (22-30) 02/28/18 05:30 BUN 9 mg/dL (7-17) 02/28/18 05:30 Creatinine 0.40 mg/dL (0.52-1.04) L 02/28/18 05:30 Estimated Creat Clear 138 02/28/18 05:30 Est GFR ( Amer) > 60 (60-) 02/28/18 05:30 Est GFR (Non-Af Amer) > 60 (60-) 02/28/18 05:30 Glucose 223 mg/dL (74-106) H 02/28/18 05:30 Calcium 7.7 mg/dL (8.4-10.2) L 02/28/18 05:30 Total Bilirubin 1.0 mg/dL (0.2-1.3) 02/28/18 05:30 AST 31 U/L (15-46) 02/28/18 05:30 ALT 36 U/L (13-69) 02/28/18 05:30 Alkaline Phosphatase 210 U/L (38-126) H 02/28/18 05:30 Creatine Kinase 72 U/L (30-135) 02/27/18 08:23 CK-MB (CK-2) 4.9 ng/mL (0.0-5.6) 02/27/18 08:23 Troponin I 0.03 ng/mL (0.03-0.06) 02/27/18 08:23 NT-Pro-B Natriuret Pep > 56070.0 pg/mL (15.0-125.0) H 02/27/18 08:23 Total Protein 5.8 g/dL (6.3-8.2) L 02/28/18 05:30 Albumin 2.7 g/dL (3.5-5.0) L 02/28/18 05:30 Vitamin B12 1259 pg/mL (211-946) H 02/28/18 05:30 Folate 9.1 ng/mL (>4.50) 02/28/18 05:30 Assessment/Plan - Assessment/Plan (1) Hyperkalemia Status: Acute Assessment: improved, will continue o monitor (2) Hyponatremia Status: Acute Assessment: Na is a little lower today will start fluid restrictions. May need to get consult with Dr Powers. (3) Diabetes type 2 with atherosclerosis of arteries of extremities Status: Acute Assessment: BS have improved some (4) CHF (congestive heart failure) Status: Acute Qualifiers: Heart failure type: unspecified Heart failure chronicity: unspecified Qualified Code(s): I50.9 - Heart failure, unspecified (5) Altered mental status Status: Acute Qualifiers: Altered mental status type: disorientation Qualified Code(s): R41.0 - Disorientation, unspecified Assessment: improved some today (6) Essential hypertension Status: Acute Assessment: stable
[2018-03-01] MEDS: IPRATROPIUM/ALBUTEROL SULFATE 3 ML AMPUL.NEB NEB SCH ×4 (00:03→17:16)
[2018-03-01] MEDS: PANTOPRAZOLE SODIUM 40 MG TABLET PO SCH (06:20)
[2018-03-01] MEDS: 0.9 % SODIUM CHLORIDE 1,000 ML IV SCH ×2 (06:21→13:13)
[2018-03-01] MEDS ORDERED: LEVOTHYROXINE SODIUM 25 MCG TABLET PO SCH (07:00)
[2018-03-01] MEDS: LEVOFLOXACIN 500MG/D5W 100ML 500 MG in PREMIX BAG 1 BAG IV SCH (08:59)
[2018-03-01] MEDS: ASPIRIN EC 81 MG TABLET.DR PO SCH (09:00)
[2018-03-01] MEDS: GABAPENTIN 300 MG CAPSULE PO SCH ×3 (09:00→17:38)
[2018-03-01] MEDS ORDERED: TIOTROPIUM BROMIDE INHALER IH SCH (09:00)
[2018-03-01] MEDS: SITAGLIPTIN PHOSPHATE 50 MG TABLET PO SCH (09:00)
[2018-03-01] MEDS: VENLAFAXINE HCL 37.5 MG CAP.ER.24H PO SCH (09:00)
[2018-03-01] MEDS: POLYETHYLENE GLYCOL 3350 17 GM POWD.PACK PO SCH (09:00)
[2018-03-01] MEDS: CLOPIDOGREL BISULFATE 75 MG TABLET PO SCH (09:01)
[2018-03-01] MEDS: METOPROLOL SUCCINATE 50 MG TAB.ER.24H PO SCH (09:01)
[2018-03-01] MEDS: INSULIN REGULAR, HUMAN 100 UNIT/ML 3ML VIAL SQ SCH ×3 (09:01→17:39)
[2018-03-01] MEDS: INSULIN LISPRO 100 UNIT/ML 3ML VIAL SQ SCH ×3 (09:01→17:39)
[2018-03-01] MEDS: CYANOCOBALAMIN (VITAMIN B12) 1,000 MCG TABLET PO SCH (09:01)
[2018-03-01] MEDS: SENNOSIDES/DOCUSATE SODIUM 1 EACH TABLET PO SCH (09:20)
[2018-03-01 10:28] LABS: BASOPHILS % 0.5 (0.0-1.5); EOSINOPHILS % 0.8 % (0.0-6.8); MEAN CORPUSCULAR VOLUME 99.4 fl (80.0-100.0); MONOCYTES % 4.7 % (0.0-11.0); NEUTROPHILS # 4.8 # k/uL (1.4-7.7)
[2018-03-01 10:48] LABS: eGFR (Non-African) > 60
[2018-03-01] MEDS: FUROSEMIDE 40 MG/4 ML VIAL IVP SCH (11:58)
[2018-03-01] MEDS: ENOXAPARIN SODIUM 30 MG/0.3 ML DISP.SYRIN SQ SCH (16:30)
[2018-03-01 19:18] VITALS: BP 200/111
[2018-03-02] MEDS ORDERED: FUROSEMIDE 40 MG TABLET PO SCH (09:00)
--- NOTE | 2018-03-08 14:36 | Discharge Summary ---
Discharge Summary - Discharge Sumary History of Present Illness: Patient is a 67-year-old white female from [facility]. Patient has a history of dementia along with diabetes coronary artery disease, congestive heart failure, patient was noted to be hypoxic at the long-term with an SaO2 of 74%. Patient appeared to be having some increase mental confusion. Patient has had a cough that is been productive sounding for several days. Patient is not had any fever or chills. Patient oral intake has been diminished. Patient was subsequently brought to the emergency room for evaluation. In the emergency room patient was found to be hyponatremia with a sodium of 122 and hyerkalemic with her potassium of 5.4. Patient was noted to be hyperglycemic for the blood sugar in the 300s. Patient has a history of congestive heart failure. Is not known what her baseline BNP is. Patient BNP in the emergency room was elevated. Chest x-ray showed a possible early infiltrate. Patient was subsequently admitted to the hospital for further care and evaluation. Patient did appear to be confused to the family members more than her baseline. Condition at Discharge: Stable Home Medications: Ambulatory Orders Medication Instructions Recorded Aspirin [Aspir-Low] 81 mg PO D 02/27/18 Atorvastatin Calcium 40 mg PO D 02/27/18 Clopidogrel Bisulfate [Plavix] 75 mg PO D 02/27/18 Cyanocobalamin [Vitamin B-12] 1,000 mcg PO D 02/27/18 Furosemide [Lasix] 20 mg PO D 02/27/18 Gabapentin 300 mg PO TID 02/27/18 Insulin Glargine,Hum.rec.anlog 12 unit SQ HS 02/27/18 [Lantus] Insulin Lispro 3Ml [Humalog] 4 unit SQ TID 02/27/18 Levothyroxine Sodium 75 mcg PO D 02/27/18 Lisinopril 5 mg PO D 02/27/18 Metoprolol Succinate 50 mg PO D 02/27/18 Pantoprazole Sodium 40 mg PO D 02/27/18 Polyethylene Glycol 3350 [Miralax] 17 gm PO D 02/27/18 Ropinirole HCl 0.5 mg PO HS 02/27/18 Sennosides/Docusate Sodium 1 tab PO BID 02/27/18 [Senna-Docusate Sodium Tablet] Sitagliptin Phosphate [Januvia] 100 mg PO AM 02/27/18 Tiotropium [place] [Spiriva] 18 mcg IH D 02/27/18 Venlafaxine HCl [Effexor Xr] 75 mg PO D 02/27/18 Venlafaxine HCl [Effexor Xr] 150 mg PO D 02/27/18 Consultations this Visit: None Procedures this Visit: None Allergies/Adverse Reactions: Allergies Allergy/AdvReac Type Severity Reaction Status Date / Time cephalexin monohydrate Allergy Unknown Verified 03/04/18 23:59 [From Keflex] rosuvastatin calcium Allergy Unknown Verified 03/04/18 23:59 [From Crestor] codeine Allergy Verified 03/04/18 23:59 Discharge Summary: Patient potassium on admission was 5.4. There is no EKG changes consistent with hyperkalemia. Patient EKG remain stable during the hospitalization. Patient potassium did return back to normal within 24 hours the time of dismissal was 3.5. Patient hyponatremia continued to be a problem. On admission it was 122. Patient was started on normal saline with IV Lasix and sodium did increase up to 124. Patient had some mild congestive heart failure on admission. Patient weight fluids status was closely monitored. BNP was greater than 20,000 but this appeared to be close to her baseline. Patient it is not well controlled on admission blood sugars 393. Patient blood sugar did come down to the upper 100 to lower 200 range. Patient did not have any hypoglycemic episodes. Patient did have some mental confusion on admission and did clear and patient with close to her normal baseline at the time of dismissal. On the day of dismissal patient was begging to go back to the long-term. Even though patients electrolytes had not normalized it was felt that we could further detention attendant on an outpatient basis. Since patient seemed to have persistent hyponatremia and appointment to see Dr. for further evaluation will be made.Patient gangrenous changes to her toes remain stable. - Final Diagnosis (1) Hyperkalemia Problems: Potassium has normalized (2) CHF (congestive heart failure) Problems: appears to be stable, mild changes on x-ray, BNP elevated, not sure what baseline is. (3) Hyponatremia Problems: improved but still low. Will get consult with Dr. Powers (4) Diabetes type 2 with atherosclerosis of arteries of extremities Problems: mproved (5) Altered mental status Problems: improved (6) Essential hypertension Problems: stable (7) Peripheral vascular disease Problems: stable, no significant change in toes noted.
== END 2018-03-01 18:45 | DRG 292 ==
LOC: ED 07:18 → SOUTH 11:20
PROVIDERS: ADMIT Family Medicine; ATTEND Family Medicine
DX: I50.9 Heart failure, unspecified (principal); E87.1 Hypo-osmolality and hyponatremia; E11.8 Type 2 diabetes mellitus with unspecified complications; I70.90 Unspecified atherosclerosis; E87.5 Hyperkalemia; R41.0 Disorientation, unspecified
CPT/HCPCS: 36415; 71045; 80053; 82550; 82553; 82608; 82746; 83880; 84484; 85014; 85018; 85025; 93005; 94640; 94760; J1650; J1815; J1940; J1956; J7030; J7060; 96365; 99222; 99232; 99238; S1016

== ENCOUNTER 2018-03-04 22:03 | Emergency (ER) | payer OTHER ==
[2018-03-04] MEDS ORDERED: VANCOMYCIN HCL 1 GM in 0.9 % SODIUM CHLORIDE 500 ML IV ONE (22:37)
[2018-03-04] MEDS ORDERED: DEXTROSE 50% 50 ML DISP.SYRIN IVP ONE ×2 (22:58→23:00)
--- NOTE | 2018-03-04 23:02 | ED Physician Documentation ---
General Adult - HISTORIAN Historian: patient, paramedics, other (NH report) - HPI Stated Complaint: hypoglycemia Chief Complaint: General Adult Additional Information: Resident [facility] found by their staff non-responsive, - ROS CONST: no problems - PAST HX Past History: hypertension, other (IDDM, CVD, recent pneumonia) Allergies/Adverse Reactions: Allergies Allergy/AdvReac Type Severity Reaction Status Date / Time cephalexin monohydrate Allergy Unknown Verified 03/04/18 23:59 [From Keflex] rosuvastatin calcium Allergy Unknown Verified 03/04/18 23:59 [From Crestor] codeine Allergy Verified 03/04/18 23:59 Home Medications: Ambulatory Orders Medication Instructions Recorded Aspirin [Aspir-Low] 81 mg PO D 02/27/18 Atorvastatin Calcium 40 mg PO D 02/27/18 Clopidogrel Bisulfate [Plavix] 75 mg PO D 02/27/18 Cyanocobalamin [Vitamin B-12] 1,000 mcg PO D 02/27/18 Furosemide [Lasix] 20 mg PO D 02/27/18 Gabapentin 300 mg PO TID 02/27/18 Insulin Glargine,Hum.rec.anlog 12 unit SQ HS 02/27/18 [Lantus] Insulin Lispro 3Ml [Humalog] 4 unit SQ TID 02/27/18 Levothyroxine Sodium 75 mcg PO D 02/27/18 Lisinopril 5 mg PO D 02/27/18 Metoprolol Succinate 50 mg PO D 02/27/18 Pantoprazole Sodium 40 mg PO D 02/27/18 Polyethylene Glycol 3350 [Miralax] 17 gm PO D 02/27/18 Ropinirole HCl 0.5 mg PO HS 02/27/18 Sennosides/Docusate Sodium 1 tab PO BID 02/27/18 [Senna-Docusate Sodium Tablet] Sitagliptin Phosphate [Januvia] 100 mg PO AM 02/27/18 Tiotropium [place] [Spiriva] 18 mcg IH D 02/27/18 Venlafaxine HCl [Effexor Xr] 75 mg PO D 02/27/18 Venlafaxine HCl [Effexor Xr] 150 mg PO D 02/27/18 - SOCIAL HX Smoking History: non-smoker - FAMILY HX Family History: No - VITAL SIGNS Vital Signs: Vital Signs Temp Pulse Resp BP Pulse Ox 200/111 03/01/18 18:39 - REVIEWED ASSESSMENTS Nursing Assessment Reviewed: Yes Vitals Reviewed: Yes Progress - Progress Progress: 2257, FSG 47 after 500 ml D10 x2. Will push 1 vial 50% D. 0002, FSG 240 after. 2335, pt's phoned. Advised him that pt was potentially quite ill. And would likely be transferred. Na 117, was 121-124 last week. Explained to pt's that ambulance transport to [facility] unlikely and he requests she be transferred to [facility]. EKG: sinus rhythm with occasional PVC. 63 BPM. No acute ischemic changes. Report Submission Date: Mar 05, 2018 12:58:19 AM CDT Patient Study Name: MORAIMA LOCO Date: Mar 05, 2018 12:25:35 AM CDT Modality Type: DX Gender: F Description: CHEST : 52 Institution: [facility] Physician: MANN MALDONADO - ER Ap upright radiographs of the chest Clinical history: Short of breath Comparison: 6 days earlier Technique: anterior /posterior portable upright Findings: The lung sandoval are hyperinflated. There is cardiomegaly. An implanted port is present. Postoperative changes are present in the right humerus. Aortic arch is calcified. No pneumothorax or pleural effusion is seen. Impression: Increased hyperinflation. Cardiomegaly. Implanted port unchanged No acute infiltrate Electronically signed on Mar 05, 2018 12:58:19 AM CDT by: Epi Omalley IO would have been attempted, but no complete kit in ER. Spoke with Nsg Knurling Machine Operator at [facility], but they have no ICU or stepdown beds. contacted and agreed to transfer to [facility]. 0119, FSG 342. Spoke with Radha [facility] dry transfer worker. 0140, spoke with Dr. Figueroa, [facility]. Pt accepted for transfer to [facility]. ED Results Lab/Radiology - Orders Orders: ED Orders Category Date Time Status Continuous EKG monitoring Q1H Care 03/04/18 22:[address] IV Lock 1T Care 03/04/18 22:22 Active Remove IV/Saline Lock 1T Care 03/04/18 22:20 Active BLOOD CULTURE Stat Lab 03/04/18 Ordered CBC/PLATELET/DIFF Routine Lab 03/04/18 Ordered CMP Routine Lab 03/04/18 Ordered LACTATE Stat Lab 03/04/18 Ordered URINALYSIS Routine Lab 03/04/18 Ordered Chem Sticks Med 03/04/18 22:22 Pending 1 each CHEMQ PRN Dextrose 50% [Dextrose 50%-Water Syringe] Med 03/04/18 22:58 Discontinued 50 ml IVP NOW ONE Piperacillin Sodium/Tazobactam [Zosyn] Med 03/05/18 22:37 Once 3.375 gm IV Q6 ONE Vancomycin HCl [Vancocin] 1 gm Med 03/04/18 22:37 Active 0.9 % Sodium Chloride [Normal Saline] 500 ml IV NOW EKG WITH COMPARISON Stat Ther 03/04/18 Ordered General Adult Physical Exam - PHYSICAL EXAM GENERAL APPEARANCE: mild distress EENT: eye inspection normal, pharynx normal NECK: normal inspection, supple. No: lymphadenopathy RESPIRATORY: breath sounds normal (decreased but poor effort), rales CVS: reg rate & rhythm ABDOMEN: soft, normal bowel sounds, no distension, non-tender SKIN: other (hands to proximal wrists and feet including ankles red/cyanotic/purple. dorsal surface of right toes with black scabs. Scaling of feet in multiple areas, but no other necrotic or ulcerated sites. Baljit PT's barely palpable) EXTREMITIES: no edema NEURO: CN's nml as tested, motor nml, sensation nml, other (conversant, alert when speaking/spoken to. Questions and answers appropriate. ) Discharge Clincal Impression: Hyponatremia, Hypoglycemia, Gangrenous toe Referrals: Yakov Gaston MD [Primary Care Provider] - 2 Days Disposition: 02 XFER SHT-TRM HOSP Decision to Admit: NO Decision Time: 01:40
[2018-03-04 23:58] LABS: BASOPHILS % 0.2 (0.0-1.5); EOSINOPHILS % 0.8 % (0.0-6.8); MEAN CORPUSCULAR HEMOGLOBIN 29.9 pg (28.0-34.0); MONOCYTES % 4.6 % (0.0-11.0)
[2018-03-05 00:42] LABS: eGFR (African) > 60; eGFR (Non-African) > 60
[2018-03-05] MEDS ORDERED: 0.9 % SODIUM CHLORIDE 1,000 ML IV SCH (01:00)
--- NOTE | 2018-03-05 01:27 | Diagnostic Imaging Report ---
MANN MALDONADO [facility] [id number] [facility] [address] [address] Report Submission Date: Mar 05, 2018 12:58:19 AM CDT Patient Study Name: MORAIMA LOCO Date: Mar 05, 2018 12:25:35 AM CDT Modality Type: DX Gender: F Description: CHEST : 52 Institution: [facility] Physician: MANN MALDONADO Ap upright radiographs of the chest Clinical history: Short of breath Comparison: 6 days earlier Technique: anterior /posterior portable upright Findings: The lung sandoval are hyperinflated. There is cardiomegaly. An implanted port is present. Postoperative changes are present in the right humerus. Aortic arch is calcified. No pneumothorax or pleural effusion is seen. Impression: Increased hyperinflation. Cardiomegaly. Implanted port unchanged No acute infiltrate Electronically signed on Mar 05, 2018 12:58:19 AM CDT by: Epi LAM
[2018-03-05] MEDS ORDERED: 0.9 % SODIUM CHLORIDE 1,000 ML IV ONE (01:42)
[2018-03-05] MEDS ORDERED: PIPERACILLIN SODIUM/TAZOBACTAM 3.375 GM VIAL IV ONE ×2 (01:44→22:37)
[2018-03-05] MEDS ORDERED: 0.9 % SODIUM CHLORIDE 100 ML IV ONE (01:45)
[2018-03-05 02:48] VITALS: BP 134/69
== END 2018-03-05 02:20 | disposition short-term general hospital (02) ==
LOC: ED 22:03
DX: E87.1 Hypo-osmolality and hyponatremia (principal); E16.2 Hypoglycemia, unspecified; I96 Gangrene, not elsewhere classified
CPT/HCPCS: 71045; 80053; 83605; 85025; 87040; 93005; J2543; J3370; J7030; J7060; 96365; 96366; 96367; 96375; 96376; S1016